=== PATIENT | female | born 1975 | race Two or more races ===

== ENCOUNTER 2020-10-16 01:10 | Emergency (ER) | payer OTHER ==
[~2020-10-16] VITALS: Ht 160 cm; Wt 64.0 kg
--- NOTE | 2020-10-16 01:30 | NUR ---
PT CAME INTO ED THIS AM WITH HER DUE TO UPPER EPIGASTRIC ABDOMINAL PAIN, REPORTS NAUSEA BUT NO VOMITTING, DENIES DIARRHEA, STATES IT FEELS LIKE WHEN SHE USED TO HAVE ISSUES WITH HER GALL BLADDER. PT NAD, BED IN LOWEST, RAILS ENGAGED, CALL LIGHT ON LAP, WCTM.
[2020-10-16] MEDS ORDERED: MORPHINE SULFATE 4 MG/ML, 1ML ONE ×2 (01:50→02:18)
[2020-10-16] MEDS ORDERED: ONDANSETRON 2MG/ML, 2ML ONE (01:50)
[2020-10-16] MEDS: MORPHINE SULFATE 4 MG/ML, 1ML IVPush PRN ×2 (01:55→02:21)
[2020-10-16] MEDS ORDERED: ONDANSETRON 2MG/ML, 2ML IVPush ONE (02:00)
[2020-10-16] MEDS ORDERED: SODIUM CHLORIDE 0.9% 1,000ML IVBOLUS ONE (02:00)
--- NOTE | 2020-10-16 02:23 | NUR ---
BREAK RN: PT CRYING IN ROOM, IN VISIBLE DISTRESS R/T PAIN. PT MEDICATED PER EMAR. RESTING ON [employer] W/ CALL LIGHT IN REACH AND SIDE RAILS UPX2. FAMILY AT BEDSIDE. DAIANA NICOLE. AWAITING CT.
[2020-10-16 02:33] LABS: BASOPHILS % (AUTO) 0 % (0-1); EOSINOPHILS % (AUTO) 1 % (1-7); LYMPHOCYTES % (AUTO) 23 % (22-44); MEAN CORPUSCULAR HEMOGLOBIN 25.1 pg (27.0-34.8); MEAN CORPUSCULAR HGB CONC 32.8 g/dL (32.4-35.8); MEAN PLATELET VOLUME 8.6 fL (7.4-10.4); MONOCYTES % (AUTO) 6 % (2-9); NEUTROPHILS % (AUTO) 70 % (42-75); PLATELET COUNT 362 x10^3/uL (130-400); RED BLOOD COUNT 5.22 x10^6/uL (3.82-5.3); RED CELL DISTRIBUTION WIDTH 15.3 % (9.6-15.2)
[2020-10-16] MEDS ORDERED: HYDROmorphone 1 MG/ML, 1ML INJ ONE (02:35)
[2020-10-16 02:36] LABS: MD NO
[2020-10-16 02:42] LABS: ALANINE AMINOTRANSFERASE 36 U/L (12-78); ALBUMIN 4.4 g/dL (3.4-5.0); ANION GAP 7 mmol/L (5-15); CHLORIDE 105 mmol/L (98-107); CREATININE 0.78 mg/dL (0.55-1.02)
--- NOTE | 2020-10-16 02:43 | NUR ---
BREAK RN: PT REPORTS NO RELIEF W/ PAIN MEDS. ERP UPDATED. PT MEDICATED PER EMAR. VSS, NADN. AWAITING CT.
[2020-10-16 02:46] LABS: ALKALINE PHOSPHATASE 118 U/L (45-117); BILIRUBIN,TOTAL 0.2 mg/dL (0.2-1.0); TOTAL PROTEIN 9.2 g/dL (6.4-8.2); TROPONIN I < 0.015 ng/mL (0.000-0.045)
[2020-10-16] MEDS ORDERED: HYDROmorphone 1 MG/ML, 1ML INJ IV ONE (03:00)
[2020-10-16] MEDS ORDERED: OMNIPAQUE 350 MG/ML, 100ML BOTTLE ONE (03:11)
--- NOTE | 2020-10-16 03:35 | NUR ---
PT RESTING ON GURNEY, APPEARS SLIGHTLY MORE COMFORTABLE, RESTING ON SIDE, NAD, VSS, WCTM. WAITING FOR CT
--- NOTE | 2020-10-16 04:15 | NUR ---
rn called ct to check on results. ct calling stat rad at this time for follow up. pt reports severe pain, erp aware, no new orders at this time. pt resting on [employer], at bs, appears uncomfortable, waiting for ua, wctm.
--- NOTE | 2020-10-16 04:37 | NUR ---
pt and pt requesting more pain meds, erp aware, no new orders at this time. pt informed we need the ct to get an idea of what is going on d/t medication not helping pain at all. pt nad, resting on leti lal.
[2020-10-16] MEDS ORDERED: PROMETHAZINE 25 MG/ML, 1ML ONE (05:22)
[2020-10-16] MEDS ORDERED: PROMETHAZINE 25 MG/ML, 1ML IM ONE (05:30)
[2020-10-16 05:49] LABS: MICROSCOPIC NOT IND
[2020-10-16] MEDS ORDERED: MAALOX/HYOSCYAMINE/LIDOCAINE 45 ML BTL ONE (05:51)
[2020-10-16] MEDS ORDERED: MAALOX/HYOSCYAMINE/LIDOCAINE 45 ML BTL PO ONE (06:00)
--- NOTE | 2020-10-16 06:04 | NUR ---
PT MEDICATED PER MAR FOR NAUSEA AND DISCOMFORT. AT BS. Patient is resting comfortably in bed AT THIS TIME. EYES CLOSED, EVEN AND UNLABORED RESPIRATIONS. Bed in lowest, rails engaged, call light on lap. Vital Signs within normal limits. WCTM.
[2020-10-16 06:11] VITALS: BP 103/64
--- NOTE | 2020-10-16 06:40 | NUR ---
Patient/SPOUSE given discharge instructions and they have confirmed that they understand the instructions. Patient ambulatory with steady gait BUT PREFERRED WHEELCHAIR FOR DC. NAD, all questions answered appropriately, denies additional needs at this time. No personal belongings left in room after discharge.
== END 2020-10-16 06:42 | disposition home or self-care (01) ==
LOC: ED 06:30
DX: A09 Infectious gastroenteritis and colitis, unspecified (principal); R10.84 Generalized abdominal pain; R11.2 Nausea with vomiting, unspecified; Z90.49 Acquired absence of other specified parts of digestive tract
CPT/HCPCS: 36415; 74177; 80053; 81003; 83690; 84484; 85025; 96361; 96372; 96374; 96375; 99285; J1170; J2270; J2405; J2550; J7030; Q9967